=== PATIENT | female | born 1930 | race Caucasian/White ===

== ENCOUNTER 2022-06-22 09:06 | Inpatient (IN) | payer MEDICARE, BC ==
[2022-06-22] MEDS ORDERED: Iopamidol 370 76% 100 ML VIAL ONE (09:34)
[2022-06-22] MEDS ORDERED: Furosemide 100 MG/10 ML VIAL ONE (09:43)
[2022-06-22 09:57] LABS: #Basophils 0.1 10x3/uL (0.0-0.2); #Eosinphils 0.2 10x3/uL (0.0-0.5); #Monocytes 0.7 10x3/uL (0.0-1.1); #Neutrophils 5.5 10x3/uL (1.5-8.4); %Eosinophils 2.4 % (0.0-6.0); %Lymphocytes 11.8 % (18.0-47.0); %Monocytes 9.3 % (0.0-10.0); %Neutrophils 75.2 % (40.0-75.0); Hemoglobin 12.7 g/dL (12.0-15.5); Mean Corpuscular HGB CONC 32.2 g/dL (32.0-36.0); Mean Corpuscular Hemoglobin 29.7 pg (27.0-33.0); Mean Corpuscular Volume 92.3 fl (81.6-98.3); Mean Platelet Volume 9.2 fl (7.4-10.4); Platelet Count 197 10x3/uL (150-450); RBC Distribution Width 13.4 % (11.5-14.5); Red Blood Cell (RBC) Count 4.28 10x6/uL (3.90-5.03); White Blood Cell (WBC) Count 7.2 10x3/uL (3.5-10.5)
[2022-06-22 10:17] LABS: ALT (SGPT) 15 U/L (8-55); AST (SGOT) 23 U/L (5-34); Albumin 4.1 g/dL (3.4-4.8); Alkaline Phosphatase 87 U/L (40-110); Anion Gap 17 mmol/L (10-20); BUN (Urea Nitrogen) 25 mg/dL (9.8-20.1); Calc. Creatinine Clearance 0 mL/min (70-130); Calcium 9.8 mg/dL (7.8-10.44); Carbon Dioxide 22 mmol/L (23-31); Chloride 100 mmol/L (98-107); Estimated GFR 34; Globulin 3.4 g/dL (2.4-3.5); Glucose 115 mg/dL (83-110); Magnesium 1.8 mg/dL (1.6-2.6); Potassium 4.6 mmol/L (3.5-5.1); Protein, Total 7.5 g/dL (5.8-8.1); Sodium 134 mmol/L (136-145)
[2022-06-22 10:18] LABS: D-Dimer Test 0.99 mg/L FEU (0.19-0.50); INR-International Normal Ratio 1.2; PTT 30.7 sec (22.0-33.0); Prothrombin Time 13.3 sec (9.5-12.1)
[2022-06-22 10:39] LABS: SARS-CoV-2 NAA Rapid Test Not Detected (NotDetected)
[2022-06-22] MEDS ORDERED: methylPREDNISolone Sod Succ/PF 125 MG/2 ML VIAL ONE (11:10)
[2022-06-22] MEDS ORDERED: Ipratropium/Albuterol 3 ML NEB ONE (11:16)
[2022-06-22 14:39] LABS: Actual Bicarbonate (HCO3v) 24 mEq/L (22-28); Base Excess 0.9 mEq/L (-2 - +2); Chloride (VBG) 98 mmol/L (98-106); Hemoglobin (Hb) 14.6 g/dL (11.7-16.1); Potassium (VBG) 4.28 mmol/L (3.70-5.30); Puncture Site Other Site; RapidComm Collect By lab tech; Sodium 132.7 mmol/L (133-146); pH (venous) 7.46 (7.32-7.43)
[2022-06-22] MEDS ORDERED: Dextrose 5% in Water 1,000 ML IV PRN (16:41)
[2022-06-22] MEDS ORDERED: Dextrose 50% Abboject 50 ML SYRINGE SLOW IVP PRN (16:41)
[2022-06-22] MEDS ORDERED: HumaLOG 300 UNITS/3 ML VIAL SC PRN (16:41)
[2022-06-22] MEDS ORDERED: Ondansetron PF 4 MG/2 ML Vial IVP PRN (16:43)
[2022-06-22] MEDS ORDERED: Acetaminophen 325 MG TAB PO PRN (16:43)
[2022-06-22] MEDS ORDERED: Ondansetron ODT 4 MG TAB PO PRN (16:43)
[2022-06-22] MEDS ORDERED: Electrolyte Replacement Protocol 1 EACH FS SCH (16:45)
[2022-06-22] MEDS ORDERED: Magnesium 2 GM/50 ML(in water) 2 GM in Premix Bag 1 BAG IVPB SCH (17:00)
[2022-06-22] MEDS: Apixaban 5 MG TAB PO SCH (22:26)
[2022-06-22] MEDS: Atorvastatin Calcium 40 MG TAB PO SCH (22:26)
[2022-06-22] MEDS: Metoprolol Tartrate 25 MG TAB PO SCH (22:27)
[2022-06-23 04:39] LABS: #Monocytes 0.2 10x3/uL (0.0-1.1); #Neutrophils 3.2 10x3/uL (1.5-8.4); %Lymphocytes 11.9 % (18.0-47.0); %Monocytes 3.9 % (0.0-10.0); %Neutrophils 83.7 % (40.0-75.0); Mean Corpuscular HGB CONC 32.9 g/dL (32.0-36.0); Mean Corpuscular Hemoglobin 29.9 pg (27.0-33.0); Mean Platelet Volume 9.3 fl (7.4-10.4); Platelet Count 176 10x3/uL (150-450); RBC Distribution Width 13.4 % (11.5-14.5); Red Blood Cell (RBC) Count 4.01 10x6/uL (3.90-5.03); White Blood Cell (WBC) Count 3.9 10x3/uL (3.5-10.5)
[2022-06-23 04:53] LABS: Phosphorus 3.9 mg/dL (2.3-4.7)
[2022-06-23 04:58] LABS: Anion Gap 18 mmol/L (10-20); BUN (Urea Nitrogen) 32 mg/dL (9.8-20.1); Calc. Creatinine Clearance 26 mL/min (70-130); Calcium 9.7 mg/dL (7.8-10.44); Carbon Dioxide 22 mmol/L (23-31); Chloride 98 mmol/L (98-107); Estimated GFR 32; Glucose 298 mg/dL (83-110); Magnesium 2.5 mg/dL (1.6-2.6); Potassium 4.7 mmol/L (3.5-5.1); Sodium 133 mmol/L (136-145)
[2022-06-23] MEDS: HumaLOG 300 UNITS/3 ML VIAL SC PRN ×2 (06:49→11:52)
[2022-06-23] MEDS ORDERED: Furosemide 20 MG/2 ML VIAL SLOW IVP SCH (09:00)
[2022-06-23] MEDS ORDERED: Furosemide 40 MG/4 ML VIAL SLOW IVP SCH (09:00)
[2022-06-23] MEDS: Apixaban 5 MG TAB PO SCH ×2 (09:49→21:42)
[2022-06-23] MEDS: Metoprolol Tartrate 25 MG TAB PO SCH ×2 (09:49→21:42)
[2022-06-23] MEDS ORDERED: Sildenafil Citrate 20 MG TAB PO SCH (14:00)
[2022-06-23] MEDS: Furosemide 20 MG/2 ML VIAL SLOW IVP SCH (14:18)
[2022-06-23] MEDS ORDERED: Lantus 1000 UNITS/10 ML VIAL SC SCH (21:00)
[2022-06-23] MEDS: Atorvastatin Calcium 40 MG TAB PO SCH (21:42)
[2022-06-23] MEDS: Sildenafil Citrate 20 MG TAB PO SCH (21:42)
[2022-06-24 05:05] LABS: #Eosinphils 0.1 10x3/uL (0.0-0.5); #Monocytes 0.7 10x3/uL (0.0-1.1); #Neutrophils 6.3 10x3/uL (1.5-8.4); %Basophils 0.1 % (0.0-2.0); %Eosinophils 0.6 % (0.0-6.0); %Lymphocytes 14.7 % (18.0-47.0); %Monocytes 8.9 % (0.0-10.0); %Neutrophils 75.2 % (40.0-75.0); Hemoglobin 11.7 g/dL (12.0-15.5); Mean Corpuscular HGB CONC 32.5 g/dL (32.0-36.0); Mean Corpuscular Hemoglobin 29.8 pg (27.0-33.0); Mean Corpuscular Volume 91.8 fl (81.6-98.3); Mean Platelet Volume 9.4 fl (7.4-10.4); Platelet Count 175 10x3/uL (150-450); RBC Distribution Width 13.7 % (11.5-14.5); Red Blood Cell (RBC) Count 3.92 10x6/uL (3.90-5.03); White Blood Cell (WBC) Count 8.3 10x3/uL (3.5-10.5)
[2022-06-24 05:13] LABS: Anion Gap 16 mmol/L (10-20); BUN (Urea Nitrogen) 42 mg/dL (9.8-20.1); Calc. Creatinine Clearance 28 mL/min (70-130); Calcium 9.8 mg/dL (7.8-10.44); Carbon Dioxide 24 mmol/L (23-31); Chloride 97 mmol/L (98-107); Estimated GFR 35; Glucose 275 mg/dL (83-110); Potassium 4.6 mmol/L (3.5-5.1); Sodium 132 mmol/L (136-145)
[2022-06-24] MEDS: Furosemide 20 MG/2 ML VIAL SLOW IVP SCH ×2 (06:34→14:22)
[2022-06-24] MEDS: HumaLOG 300 UNITS/3 ML VIAL SC PRN ×2 (07:05→18:53)
[2022-06-24 07:34] VITALS: BMI 21.2
[2022-06-24] MEDS: Metoprolol Tartrate 25 MG TAB PO SCH ×2 (08:48→21:22)
[2022-06-24] MEDS: Sildenafil Citrate 20 MG TAB PO SCH ×3 (08:49→21:22)
[2022-06-24] MEDS: Apixaban 5 MG TAB PO SCH ×2 (08:49→21:21)
[2022-06-24] MEDS: Lantus 1000 UNITS/10 ML VIAL SC SCH (08:50)
[2022-06-24] MEDS ORDERED: Lantus 1000 UNITS/10 ML VIAL SC SCH (21:00)
[2022-06-24] MEDS: Atorvastatin Calcium 40 MG TAB PO SCH (21:21)
[2022-06-25 05:56] VITALS: TEMP 97.6
[2022-06-25] MEDS: Furosemide 20 MG/2 ML VIAL SLOW IVP SCH (06:26)
[2022-06-25 08:46] LABS: Anion Gap 18 mmol/L (10-20); BUN (Urea Nitrogen) 45 mg/dL (9.8-20.1); Calc. Creatinine Clearance 21 mL/min (70-130); Calcium 10.4 mg/dL (7.8-10.44); Carbon Dioxide 24 mmol/L (23-31); Chloride 97 mmol/L (98-107); Estimated GFR 28; Glucose 132 mg/dL (83-110); Potassium 4.7 mmol/L (3.5-5.1); Sodium 134 mmol/L (136-145)
[2022-06-25] MEDS ORDERED: Metoprolol Tartrate 25 MG TAB PO SCH (09:00)
[2022-06-25] MEDS: Apixaban 5 MG TAB PO SCH (09:48)
[2022-06-25] MEDS: Lantus 1000 UNITS/10 ML VIAL SC SCH (09:49)
[2022-06-25] MEDS: Sildenafil Citrate 20 MG TAB PO SCH (09:49)
[2022-06-25 10:15] VITALS: BP 120/74
[2022-06-26] MEDS ORDERED: Furosemide 40 MG TAB PO SCH (07:30)
== END 2022-06-25 11:59 | disposition home health service (06) | DRG 291 ==
LOC: CSHERS 09:06 → CSHTELE 15:04
PROVIDERS: ADMIT Family Medicine; ATTEND Family Medicine
DX: I13.0 Hypertensive heart and chronic kidney disease with heart failure and stage 1 through stage 4 chronic kidney disease, or unspecified chronic kidney disease (principal); I50.33 Acute on chronic diastolic (congestive) heart failure; I48.19 Other persistent atrial fibrillation; I25.10 Atherosclerotic heart disease of native coronary artery without angina pectoris; E78.5 Hyperlipidemia, unspecified; I27.20 Pulmonary hypertension, unspecified; N18.30 Chronic kidney disease, stage 3 unspecified; Z20.822 Contact with and (suspected) exposure to COVID-19; M19.90 Unspecified osteoarthritis, unspecified site; E11.22 Type 2 diabetes mellitus with diabetic chronic kidney disease; I34.0 Nonrheumatic mitral (valve) insufficiency; Z79.01 Long term (current) use of anticoagulants; Z95.1 Presence of aortocoronary bypass graft; Z98.890 Other specified postprocedural states; Z88.0 Allergy status to penicillin; Z79.4 Long term (current) use of insulin; Z79.899 Other long term (current) drug therapy
CPT/HCPCS: 36415; 36416; 71045; 71275; 80048; 80053; 82805; 83735; 83880; 84100; 84484; 85025; 85379; 85610; 85730; 93005; 93306; 94640; 94760; 96374; 96375; J1815; J1940; J2930; J3475; J7620; Q9967